=== PATIENT | male | born 1950 | race Caucasian/White ===

== ENCOUNTER 2021-03-18 10:38 | Outpatient (CLI) | payer MEDICARE, SELFPAY ==
[2021-03-18 10:53] LABS: Hematocrit 45.1 % (37.0-46.0); Hemoglobin 15.1 g/dL (12.4-15.3); Mean Corpuscular HGB Conc 33.5 g/dL (32.0-36.0); Mean Corpuscular Hemoglobin 35.1 pg (27.0-31.0); Mean Corpuscular Volume 104.9 fL (78.0-102.0); Mean Platelet Volume 8.7 fl (8.7-11.0); Platelet Count Result 170 K/mm3 (150-420); Red Cell Distribution Width 13.2 % (11.6-14.4); White Blood Count 8.4 K/mm3 (4.8-10.8)
[2021-03-18 11:36] LABS: Alanine Aminotransferase 23 U/L (16-63); Albumin Level 3.4 g/dL (3.4-5.0); Alkaline Phosphatase 63 U/L (46-116); Anion Gap 8 mmol/L (8-16); Aspartate Amino Transferase 19 U/L (15-37); Blood Urea Nitrogen 11 mg/dL (7-18); Calcium 8.8 mg/dL (8.5-10.1); Carbon Dioxide 31 mmol/L (21-32); Chloride 99 mmol/L (98-108); Cholesterol 136 mg/dL (0-200); Estimated Glomerular Filt Rate 60; Glucose 105 mg/dL (70-99); HDL Direct 61 mg/dL (40-60); LDL Cholesterol Calculated 56 mg/dL (<130); Osmolality Calculated 285 mOsm/kg (285-295); Potassium 4.4 mmol/L (3.5-5.1); Sodium 138 mmol/L (136-145); Total Protein 7.6 g/dL (6.4-8.2); Triglycerides 97 mg/dL (0-150)
== END 2021-03-18 10:39 | disposition home or self-care (01) ==
LOC: CHSLAB 10:40
PROVIDERS: PCP Family Medicine; Visit Provider Family Medicine
DX: I25.10 Atherosclerotic heart disease of native coronary artery without angina pectoris (principal)
CPT/HCPCS: 36415; 80053; 80061; 85027

== ENCOUNTER 2021-03-24 07:38 | Outpatient (CLI) | payer MEDICARE, SELFPAY ==
--- NOTE | ~2021-03-24 | US_ITS ---
US abdomen limited DATE: 03/24/2021 08:04 INDICATION: Jaundice TECHNIQUE: Real-time imaging of liver, pancreas, gallbladder areas COMPARISON: None FINDINGS: No hepatic space-occupying mass lesion is evident. Normal hepatopedal portal venous flow di rection. No pancreatic mass lesion is detected. No gallstones or gallbladder wall thickening. Negative sonogra phic Bearden's sign. The common bile duct measures 3 mm, normal. IMPRESSION: No significant abnormality Reviewed, dictated and finalized at Location [facility]. Reviewed, dictated and finalized at location B. IMPRESSION: No significant abnormality
== END 2021-03-24 07:39 | disposition home or self-care (01) ==
LOC: CHSIMG 07:41
PROVIDERS: PCP Family Medicine; Visit Provider Family Medicine
DX: R17 Unspecified jaundice (principal)
CPT/HCPCS: 76705

== ENCOUNTER 2021-03-30 07:36 | Outpatient (CLI) | payer MEDICARE, SELFPAY ==
--- NOTE | 2021-03-30 07:37 | EST_ITS ---
Patient Info Name: Dakota Hogan Age: 70 years : 1950 Gender: Male Ht: 68 in Wt: 192 lbs BSA: 2.07 m2 HR: 64 bpm BP: 151 / 77 mmHg Heart Rhythm: Sinus Rhythm Technical Quality: Excellent Exam Date: 03/30/2021 8:44 AM Exam Location: [facility] Patient Status: Outpatient Admit Date: 03/30/2021 Staff Ordering Physician: Trace Hollins DO Attending Provider: Trace Hollins DO Exercise Technologist: Crista Cross CRT Exercise Physician: Leti Pham CEP Exam Type: CA stress rodney w NM Study Info Indications CAD - A nuclear stress test was performed. History/Risk Factors Hypertension: Yes Dyslipidemia: Yes Coronary Artery Disease (CAD) Yes History/Risk Factors CABG. Summary 1. 1. Negative lexiscan stress test for ischemic ST changes by ECG criteria. 2. 2. Baseline hypertension. 3. 3. Nuclear scan to follow and will be reported separately. Please correlate with it. Protocol: LEXISCAN Stress ECG Details Stage: REST Duration (min): 1 min : 37 sec HR (bpm): 64 SBP (mmHg): 151 DBP (mmHg): 77 Stage: REST Duration (min): 11 min : 17 sec HR (bpm): 63 SBP (mmHg): 151 DBP (mmHg): 77 Stage: STAGE 1 Duration (min): 0 min : 16 sec HR (bpm): 62 SBP (mmHg): 151 DBP (mmHg): 77 Stage: RECOVERY Duration (min): 0 min : 43 sec HR (bpm): 75 SBP (mmHg): 151 DBP (mmHg): 77 Stage: RECOVERY Duration (min): 1 min : 43 sec HR (bpm): 81 SBP (mmHg): 151 DBP (mmHg): 77 Stage: RECOVERY Duration (min): 2 min : 43 sec HR (bpm): 71 SBP (mmHg): 178 DBP (mmHg): 74 Stage: RECOVERY Duration (min): 3 min : 43 sec HR (bpm): 74 SBP (mmHg): 169 DBP (mmHg): 74 Stage: RECOVERY Duration (min): 4 min : 43 sec HR (bpm): 70 SBP (mmHg): 161 DBP (mmHg): 76 Stage: RECOVERY Duration (min): 5 min : 43 sec HR (bpm): 72 SBP (mmHg): 148 DBP (mmHg): 77 Stage: RECOVERY Duration (min): 6 min : 4 sec HR (bpm): 69 SBP (mmHg): 148 DBP (mmHg): 77 Rest HR: 63 bpm Peak HR: 83 bpm Rest Sys BP: 151 mmHg Peak Sys BP: 178 mmHg Max Pred HR: 149 bpm % Max Pred HR: 56 % Target HR: 127 bpm Max RPP: 14,774 bpm*mmHg Termination Reason: Completed Protocol Cardiac Symptoms: Dyspnea Total Time: 0 min : 16 sec Rest Lynn BP: 77 mmHg Peak Lynn BP: 74 mmHg Total Dose: 0.4 mg Resting ECG Normal sinus rhythm, IRBBB. Stress ECG No abnormal ST/T wave changes with exercise. Arrhythmias PAC's. Report Signatures
--- NOTE | 2021-03-30 11:33 | P.NST_ITS ---
Nuclear Stress Test INDICATIONS Indications: Chest pain PROCEDURE Procedure Performed: Myocardial Perf Spect-Multi Procedure: Patient underwent a lexiscan stress test and immediately was injected with 33.9 mCi of cardiolyte. Multiple tomographic images were obtained. These are of good quality. There is evidence of a large size, severe anteroapical perfusion defect and a moderate size, moderate intensity basal-mid anterior perfusion defect during stress imaging. A separate resting images were obtained after patient was injected with 10.7 mCi of cardioloyte. Multiple tomographic images were obtained. These are of good quality. There is evidence of a large size, severe intensity anteroapical perfusion defect during rest imaging. CONCLUSION Conclusion: 1. Abnormal myocardial perfusion imaging demonstrating a moderate size, moderate severity basal-mid anterior perfusion defect during stress imaging consistent with reversible ischemia. In addition there is a fixed large size severe intensity anteroapical defects consistent with prior myocardial infarction. 2. Left ventriculogram demonstrates anteroapical hypokinesis with measured e jection fraction of 67%. 3. TID score 0.9 is normal.
== END 2021-03-30 07:37 | disposition home or self-care (01) ==
LOC: CHSCARD 07:37
PROVIDERS: PCP Family Medicine; Visit Provider Family Medicine
DX: I25.10 Atherosclerotic heart disease of native coronary artery without angina pectoris (principal)
CPT/HCPCS: 78452; 93017; A9502; J2785

== ENCOUNTER 2021-05-01 08:19 | Outpatient (CLI) | payer MEDICARE, SELFPAY ==
[2021-05-01 09:09] LABS: Anion Gap 4 mmol/L (8-16); Blood Urea Nitrogen 15 mg/dL (7-18); Calcium 8.5 mg/dL (8.5-10.1); Carbon Dioxide 33 mmol/L (21-32); Chloride 99 mmol/L (98-108); Estimated Glomerular Filt Rate 53; Glucose 105 mg/dL (70-99); Magnesium 2.6 mg/dL (1.8-2.4); Osmolality Calculated 282 mOsm/kg (285-295); Sodium 136 mmol/L (136-145)
== END 2021-05-01 08:20 | disposition home or self-care (01) ==
LOC: CHSLAB 08:21
PROVIDERS: PCP Family Medicine; Visit Provider Specialist
DX: I25.10 Atherosclerotic heart disease of native coronary artery without angina pectoris (principal); Z79.899 Other long term (current) drug therapy
CPT/HCPCS: 36415; 80048; 83735

== ENCOUNTER 2021-09-21 19:10 | Emergency (ER) | payer MEDICARE, SELFPAY ==
--- NOTE | ~2021-09-21 | CT_ITS ---
EXAMINATION: CT diagnostic chest w con DATE: 09/21/2021 23:10 INDICATION: Posttraumatic left pleural effusion on chest radiograph TECHNIQUE: Transaxial computed tomographic images of the chest were obtained after the administration of 75 cc of Omnipaque 350 intravenous contrast. The dose-length product (DLP) was 575.46 mGy-cm. Ite rative reconstruction was used. COMPARISON: None FINDINGS: Respiratory motion artifact slightly limits the examination. There is dependent atelectasis . A small left pleural effusion is present which appears to reflect simple fluid. There is no pneumot horax. Cardiomegaly is noted. There is myocardial thinning of the left ventricular apex, consistent w ith prior myocardial infarction. There are changes of coronary artery bypass grafting. There is mild right hilar lymphadenopathy, likely reactive. Calcified subcarinal lymph nodes are consistent with ol d granulomatous disease. There are bridging osteophytes at multiple levels in the spine, consistent w ith diffuse idiopathic skeletal hyperostosis (DISH). IMPRESSION: 1. Small left pleural effusion which appears to reflect simple fluid. Mild atelectasis. Reviewed, dictated and finalized at location A. IMPRESSION: 1. Small left pleural effusion which appears to reflect simple fluid. Mild atel ectasis.
--- NOTE | ~2021-09-21 | XR_ITS ---
EXAM: XR hand RT min 3V HISTORY: right hand pain @ 2nd MCP, after a fall COMPARISON: None available FINDINGS: No fracture or dislocation. Ovoid metallic foreign body in the soft tissues posterior and medial to the second proximal phalange. Degenerative osteophytic changes in the finger joints, most s evere at the second and third MCP joints. SLAC wrist. Extensive vascular calcifications. IMPRESSION: No acute osseous finding in the right hand. Acute versus chronic foreign body in the soft tissues pos terior and medial to the second proximal phalange. Reviewed, dictated and finalized at location K. IMPRESSION: No acute osseous finding in the right hand. Acute versus chronic foreign body i n the soft tissues posterior and medial to the second proximal phalange.
--- NOTE | ~2021-09-21 | CT_ITS ---
EXAMINATION: CT brain wo con DATE: 09/21/2021 20:56 INDICATION: Fall, head injury, altered mental status, intoxicated. TECHNIQUE: Computed tomography (CT) of the head was performed without intravenous contrast. The mA wa s adjusted according to patient size. The dose-length product was 681.00 mGy-cm. COMPARISON: 05/10/2009. FINDINGS: No acute intracranial hemorrhage or extra-axial fluid collection. No hydrocephalus, mass, or herniation. No acute ischemic infarct. Unremarkable dural venous sinus attenuation. No acute osseous abnormality. Mildly coastal thickening in the ethmoid air cells and maxillary sinuses, otherwise the aerated space s are clear. Severe atrophy and moderate chronic white matter change. Areas of encephalomalacia/gliosis in the rig ht temporal lobe, right basal ganglia, and right occipital lobe. IMPRESSION: No acute intracranial process. Reviewed, dictated and finalized at location K.
--- NOTE | ~2021-09-21 | CT_ITS ---
EXAMINATION: CT pelvis wo con DATE: 09/21/2021 20:56 INDICATION: Fall while intoxicated, pelvic pain. TECHNIQUE: Computed tomography (CT) of the pelvis was performed without intravenous contrast. Automat ed exposure control and iterative reconstruction technique were employed. The dose-length product was 681.00 mGy-cm. COMPARISON: None FINDINGS: Limitations: None Bones: The included osseous structures are within normal limits. There are no erosive or destructive bony lesions. Soft Tissues:Small bilateral inguinal hernias. Marked bladder distention. Mild prostatomegaly with ca lcifications. Seminal vesicle calcification. Atherosclerotic vascular calcifications. Left posterior lateral hip contusion. Fluid: No significant fluid within the joint capsule or surrounding bursal spaces. IMPRESSION: No acute osseous finding in the pelvis. Marked bladder distention. Reviewed, dictated and finalized at location K.
--- NOTE | ~2021-09-21 | XR_ITS ---
EXAMINATION: XR chest 1V portable Exam Date/Time: 09/21/2021 20:30 CDT CLINICAL HISTORY: fall. weakness. intoxicated Comparison: None available. RESULT: Lines, tubes, and devices: Intact median sternotomy wires.. Lungs and pleura: Hazy opacity in the left lower lung. Left angle blunting. Left lower pleural locul ation. Cardiomediastinal silhouette: Unremarkable cardiomediastinal silhouette. Other: No acute osseous or upper abdominal finding. IMPRESSION: Small left pleural effusion, with adjacent atelectasis, and left lower pleural loculation which may r epresent a small hemothorax and extrapleural hematoma in the setting of trauma. Consider CT of the ch est with contrast for further evaluation. Reviewed, dictated and finalized at location K. IMPRESSION: Small left pleural effusion, with adjacent atelectasis, and left lower pleural loculation which may represent a small hemothorax and extrapleural hematoma in the setting of trauma. Consider CT of the chest with contrast for further evalu ation.
--- NOTE | ~2021-09-21 | CT_ITS ---
EXAMINATION: CT facial & cervical spine wo DATE: 09/21/2021 20:55 INDICATION: Fall, right neck hematoma and superficial laceration. TECHNIQUE: Computed tomography (CT) of the maxillofacial region and cervical spine was performed with out intravenous contrast. Automated exposure control and iterative reconstruction technique were empl oyed. The dose-length product was 431.81 mGy-cm. COMPARISON: None FINDINGS: CERVICAL: Counting reference: Craniocervical junction. There are 7 cervical type vertebral bodies. Anatomic Variants: None. Alignment: Alignment is anatomic. Craniocervical junction: Mild degenerative change, otherwise intact. Osseous structures/fracture: No evidence of a lytic or blastic process in the visualized spine. N o evidence of acute or chronic fracture. Cervical soft tissues: The paraspinal soft tissues planes are maintained. Right neck contusion. Degenerative changes: Multilevel severe degenerative disc disease. Multilevel facet arthropathy. Mult ilevel bilateral severe neural foraminal narrowing. No severe central canal narrowing. FACE: Soft Tissues: Subcutaneous contusion along the right lower face/jaw. Facial bones: No evidence of an acute fracture in the visualized facial bones. Orbits: No evidence of an acute fracture. The globes are intact. The soft tissue planes of the orb its are maintained. Paranasal Sinuses: Mild mucosal thickening in the ethmoid air cells and bilateral maxillary sinuses. Foreign Bodies: No evidence of radiopaque foreign bodies. Other: No evidence of a remote fracture. No lytic or blastic process seen in the facial bones. Cookie re dental caries and periodontal disease. IMPRESSION: No acute fracture or traumatic malalignment in the cervical spine. No acute facial bone fracture. Reviewed, dictated and finalized at location K. IMPRESSION: No acute fracture or traumatic malalignment in the cervical spine. No acute fac ial bone fracture.
[2021-09-21 19:32] VITALS: BP 118/73; PULSE 53; RESP 16; TEMP 36.4; O2SAT 100
--- NOTE | 2021-09-21 19:48 | ECG_ITS ---
Measurements Intervals Wheeler Rate: 55 P: -63 TN: 294 QRS: 76 QRSD: 101 T: 104 QT: 458 QTc: 442 Interpretive Statements SINUS BRADYCARDIA WITH FIRST DEGREE AV BLOCK MODERATE ST DEPRESSION [0.05+ mV ST DEPRESSION] ABNORMAL ECG NO PREVIOUS ECG AVAILABLE FOR COMPARISON Electronically Signed On 09-22-2021 17:50:53 CDT by Hugh Ravi M.D.
[2021-09-21 20:33] LABS: Basophils Absolute Auto 0.05 K/mm3 (0.00-0.10); Basophils Percent Auto 0.9 % (0.0-1.0); Eosinophils Absolute Auto 0.13 K/mm3 (0.02-0.50); Eosinophils Percent Auto 2.3 % (1.0-6.0); Hematocrit 43.2 % (37.0-46.0); Hemoglobin 14.6 g/dL (12.4-15.3); Immature Granulocyte Absolute 0.01 K/mm3 (0.00-0.00); Immature Granulocyte Percent A 0.2 % (0.0-0.0); Lymphocytes Absolute Auto 2.06 K/mm3 (1.10-4.50); Lymphocytes Percent Auto 36.3 % (18.0-42.0); Mean Corpuscular HGB Conc 33.8 g/dL (32.0-36.0); Mean Corpuscular Hemoglobin 36.7 pg (27.0-31.0); Mean Corpuscular Volume 108.5 fL (78.0-102.0); Monocytes Absolute Auto 0.41 K/mm3 (0.10-0.90); Monocytes Percent Auto 7.2 % (2.0-11.0); Neutrophils Percent Auto 53.1 % (50.0-70.0); Platelet Count Result 174 K/mm3 (150-420); Red Blood Count 3.98 M/mm3 (4.70-6.10); Red Cell Distribution Width 12.9 % (11.6-14.4); White Blood Count 5.7 K/mm3 (4.8-10.8)
[2021-09-21] MEDS: TETANUS,DIPHTHERIA,AC PERTUSSIS ADULT 0.5 ML (ADACEL) IM (20:52)
[2021-09-21] MEDS: THIAMINE HCL INJ 100 MG, FOLIC ACID 1 MG, MULTIVITAMINS-12 INJ 10 ML, MAGNESIUM SULFATE... 1000 MG IV CONT (20:53)
[2021-09-21 20:54] LABS: Alanine Aminotransferase 31 U/L (16-63); Albumin Level 3.5 g/dL (3.4-5.0); Alkaline Phosphatase 67 U/L (46-116); Anion Gap 8 mmol/L (8-16); Aspartate Amino Transferase 38 U/L (15-37); Bilirubin,Total 1.2 mg/dL (0.00-1.00); Blood Urea Nitrogen 6 mg/dL (7-18); Calcium 8.4 mg/dL (8.5-10.1); Carbon Dioxide 28 mmol/L (21-32); Chloride 97 mmol/L (98-108); Estimated CRCL calculation 51 ml/min; Estimated Glomerular Filt Rate > 60; Glucose 111 mg/dL (70-99); Osmolality Calculated 274 mOsm/kg (285-295); Potassium 3.9 mmol/L (3.5-5.1); Sodium 133 mmol/L (136-145); Total Protein 8.3 g/dL (6.4-8.2); Troponin I 16.4 ng/L (0.00-60.4)
[2021-09-21 20:56] LABS: Ethanol 326 mg/dL (0-6)
--- NOTE | 2021-09-21 22:15 | PC.NURSE ---
pt's friend - Caitlin [phone]
--- NOTE | 2021-09-21 22:20 | PC.NURSE ---
pt's friend Charley [phone], contacted to transport pt home.
--- NOTE | 2021-09-22 00:28 | PC.NURSE ---
pt reports, 'I already pee
--- NOTE | 2021-09-22 00:39 | PC.NURSE ---
contacted [facility] system for trauma surgery consult for patient.
--- NOTE | 2021-09-22 00:55 | PC.NURSE ---
c-collar placed on pt per MD Klein
--- NOTE | 2021-09-22 01:27 | PC.NURSE ---
pt to be transferred to [facility], er to er. [facility] contacted for pt transfer.
[2021-09-22] MEDS: SODIUM CHLORIDE 0.9% IV 1,000 ML 150 ML IV CONT (01:30)
--- NOTE | 2021-09-22 01:31 | ED.FALL ---
HPI - Fall General Chief Complaint: Fall Stated Complaint: AMB Time Seen by Provider: 09/21/21 19:12 Source: patient, EMS, RN notes reviewed and old records reviewed Mode of arrival: EMS Limitations: no limitations History of Present Illness MD complaint: fall Onset (ago): hour(s) (2, also multiple falls over the past several weeks. ) Fall from: standing Place fall occurred: home Loss of consciousness: none Prolonged down time: unclear Symptoms prior to fall: lightheadedness and dizziness Context: tripped/slipped and alcohol use Location of injury: neck and chest Severity: mild Severity scale (1-10): 4 Quality: dull and aching Associated symptoms (after fall): neck pain Related Data Home Medications Medication Instructions Recorded Confirmed aspirin 81 mg tablet,delayed 81 mg PO DAILY 03/18/21 09/21/21 release atorvastatin 40 mg tablet 40 mg PO DAILY 03/18/21 09/21/21 metoprolol tartrate 25 mg tablet 25 mg PO BID tablet 03/18/21 09/21/21 clopidogrel 75 mg PO DAILY 09/21/21 09/21/21 Allergies Allergy/AdvReac Type Severity Reaction Status Date / Time No Known Allergies Allergy Verified 09/21/21 19:31 Review of Systems Review of Systems: All systems reviewed & are unremarkable except as noted in HPI and below PMFSH Past Medical History Medical History (Updated 09/22/21 @ 02:12 by Parish Klein MD) CAD (coronary artery disease) Hypercholesterolemia Hypertension Multiple falls Surgical History Surgical History Hx of CABG Family History Family History Mother Family history of type 2 diabetes mellitus Social History Social History Smoking status: Never smoker Alcohol intake: current Alcohol use details: Drinks gallon of wine every 5 days. Exam Const: General: no acute distress and alert Nutritional Appearance: well nourished Limitations: no limitations HENMT: Head: hematoma (right lower jaw to neck) 3 cm and laceration (superficial 0.5 cm skin flaps to right lower jaw hematoma.`````````````````) General nose exam: Normal external nose present and Normal nares present Face and sinus: sinuses nontender Mouth: Yes moist mucous membranes Eyes: Conjunctivae: conjunctivae normal Pupils: Equal, round and reactive pupils present EOM: EOMs intact bilaterally Neck: Neck: normal visual inspection Other: hematoma right lower jaw to neck Chest: Chest palpation & inspection: normal inspection of the chest Resp: Effort & Inspection: normal respiratory effort Auscultation: clear to auscultation bilaterally Cardio: Rate: regular rate Rhythm: regular rhythm GI: GI Palp: Yes Soft to palpation and No Tenderness to palpation present (GI) Auscultation: normal bowel sounds : General: Yes no CVA tenderness Male General Exam: Yes normal external exam Testes: Testes normal Back/Spine/Pelvis: Back: no CVA tenderness Skin: General skin exam: normal color Rashes: no rashes Neuro: General: moves all extremities, no meningeal signs, no focal motor deficits and CN's II-XI intact bilaterally Cranial nerves: Yes Nystagmus not present Speech: normal speech Extrem: General: no pedal edema Other: minimal dorsal right hand 2nd and 3rd discolored swelling. no laceration or FB seen. Psych: Appearance: grossly normal Mental Status: mental status grossly normal Attitude: cooperative Thought content: Yes Normal thought content present Course Course Emergency Course: Pt was stable in the ED. no acute SOB or chest pain. Reevaluation(s) Reevaluation #1: VSS Date: 09/21/21 Time: 20:06 Vital Signs Vital signs: Vital Signs Temperature 36.4 C 09/21/21 19:32 Pulse Rate 53 L 09/21/21 19:32 Respiratory Rate 16 09/21/21 19:32 Blood Pressure 118/73 09/21/21 19:32 Pulse Oximetry 100 09/21/21 19:32 Temperature
[2021-09-22 01:54] LABS: Partial Thromboplastin Time 26.8 SEC (23.90-30.70); Prothrombin Time 10.5 Seconds (9.50-12.10)
[2021-09-22 02:03] LABS: Ethanol 224 mg/dL (0-6)
--- NOTE | 2021-09-22 02:03 | PC.NURSE ---
pt transported by [facility] with NS 150ml/hr
--- NOTE | 2021-09-22 02:05 | PC.NURSE ---
critical etoh 220 md alexander informed and EMMY [place] at [facility] notified with current value.
[2021-09-22 02:06] VITALS: BP 143/93; PULSE 67; RESP 20; TEMP 35.9; O2SAT 97
== END 2021-09-22 02:09 | disposition short-term general hospital (02) ==
PROVIDERS: Emergency Provider Emergency Medicine; PCP Family Medicine
DX: J94.2 Hemothorax (principal); F10.10 Alcohol abuse, uncomplicated; W19.XXXA Unspecified fall, initial encounter; I25.10 Atherosclerotic heart disease of native coronary artery without angina pectoris; E78.00 Pure hypercholesterolemia, unspecified; I10 Essential (primary) hypertension; Z79.899 Other long term (current) drug therapy; Z95.1 Presence of aortocoronary bypass graft
CPT/HCPCS: 36415; 70450; 70486; 71045; 71260; 72125; 72192; 73130; 80053; 80307; 84484; 85025; 85610; 85730; 90471; 90715; 93005; 96361; 96365; 99285; J3411; J3475; J7030; L0150; Q9967

== ENCOUNTER 2021-10-05 22:18 | Observation (INO) | payer MEDICARE, SELFPAY ==
--- NOTE | ~2021-10-05 | XR_ITS ---
EXAMINATION: XR hand RT 2V DATE: 10/06/2021 08:41 INDICATION: Pain at the right second metacarpophalangeal joint post fall TECHNIQUE: Posteroanterior and lateral views of the right hand were obtained. COMPARISON: 09/21/2021 FINDINGS: 2 mm ulnar minus variance. No fracture. There is disruption of the carpal arcs with prominent widenin g of the scapholunate interval and proximal migration of the capitate consistent with disruption of t he scapholunate ligament. There is severe osteoarthritis at the radioscaphoid and lunohamate articula tions consistent with secondary scapholunate advanced collapse (SLAC) wrist. Additional moderate oste oarthritis at the second metacarpophalangeal joint and fifth proximal interphalangeal joints. Mild os teoarthritis at the distal radioulnar, triscaphe, first carpometacarpal and remaining metacarpophalan geal and interphalangeal joints. Extensive vascular calcifications including at the distal radial and ulnar arteries. Soft tissue swelling about the heads of the second and third metacarpals. Unchanged small metallic foreign body in the soft tissues along the ulnar side of the proximal diaphysis of the second proximal phalanx. IMPRESSION: 1. No acute osseous abnormality. 2. 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 3. Additional mild to moderate polyarticular osteoarthritis at the right hand and wrist. 4. Chronic small metallic foreign body along the second proximal phalanx. Reviewed, dictated and finalized at location B. IMPRESSION: 1. No acute osseous abnormality. 2. 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 3. Additional mild to moderate polyarticular osteoarthritis at the right hand a nd wrist. 4. Chronic small metallic foreign body along the second proximal phalanx.
--- NOTE | ~2021-10-05 | CT_ITS ---
EXAMINATION: CT brain wo con DATE: 10/05/2021 23:11 INDICATION: Head injury. TECHNIQUE: Computed tomography (CT) of the head was performed without intravenous contrast. The mA wa s adjusted according to patient size. Iterative reconstruction technique was employed. The dose-lengt h product was 681.00 mGy-cm. COMPARISON: Head CT 09/21/2021 FINDINGS: There is an old infarct involving the right basal ganglia and anterior limb right internal capsule. There are old infarcts in right frontoparietal region. There is an old infarct in right occi pital lobe. There is an old infarct in anterior right temporal lobe. There are scattered areas of low attenuation in the cerebral white matter. There is no intracranial hemorrhage, acute infarction, or abnormal intracranial mass lesion. There is ex vacuo dilatation of right lateral ventricle. The orbit s are normal. There is mild mucosal thickening in the paranasal sinuses. The mastoid air cells are no rmal. There is a frontal scalp laceration. IMPRESSION: 1. 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 2. Mild nonspecific cerebral white matter disease, which likely represents chronic small vessel ische pardeep disease. Reviewed, dictated and finalized at location A. IMPRESSION: 1. 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 2. 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
[2021-10-05 22:25] VITALS: BP 120/87; PULSE 56; RESP 18; TEMP 36.6; O2SAT 97
--- NOTE | 2021-10-05 22:52 | ED.FALL ---
HPI - Fall General Chief Complaint: Fall Stated Complaint: AMB Source: patient and EMS History of Present Illness HPI Narrative: this is a 70-year-old gentleman with history of coronary artery disease on Plavix that had a fall earlier this evening the patient is a chronic alcoholic and has been drinking today has a laceration to the anterior mid scalp area no other injuries has good range of motion in his arms legs no shortness of breath no abdominal pain no chest pain no fever chills. complaint: fall Onset (ago): hour(s) Fall from: standing Place fall occurred: home Loss of consciousness: none Prolonged down time: no Related Data Home Medications Medication Instructions Recorded Confirmed aspirin 81 mg tablet,delayed 81 mg PO DAILY 03/18/21 10/05/21 release atorvastatin 40 mg tablet 40 mg PO DAILY 03/18/21 10/05/21 metoprolol tartrate 25 mg tablet 25 mg PO BID tablet 03/18/21 10/05/21 clopidogrel 75 mg PO DAILY 09/21/21 10/05/21 Allergies Allergy/AdvReac Type Severity Reaction Status Date / Time No Known Allergies Allergy Verified 10/05/21 23:24 Review of Systems Review of Systems: All systems reviewed & are unremarkable except as noted in HPI and below PMFSH Past Medical History Medical History CAD (coronary artery disease) Hypercholesterolemia Hypertension Multiple falls Surgical History Surgical History Hx of CABG Family History Family History Mother Family history of type 2 diabetes mellitus Social History Social History Smoking status: Never smoker Alcohol intake: current Alcohol use details: Drinks gallon of wine every 5 days. Exam Const: General: no acute distress and alert Orientation/consciousness: patient oriented x3 HENMT: Head: normal to inspection Eyes: Conjunctivae: conjunctivae normal Pupils: Equal, round and reactive pupils present Neck: Neck: normal visual inspection, no lymphadenopathy and no meningeal signs Chest: Chest palpation & inspection: normal inspection of the chest Resp: Effort & Inspection: normal respiratory effort Cardio: Rate: regular rate Rhythm: regular rhythm GI: Auscultation: normal bowel sounds Urinary Catheter: Urinary Catheter: patent and draining Back/Spine/Pelvis: Back: no CVA tenderness Skin: General skin exam: normal color Rashes: no rashes Neuro: General: patient oriented x3 Extrem: General: normal to inspection and no pedal edema Psych: Mental Status: mental status grossly normal Affect: normal affect Attitude: cooperative Course Course Emergency Course: [place] placed in laceration anterior scalp and CT scan performed. Critical Care Time Critical Care Time Critical Care Time: No Discharge Plan Discharge Clinical Impression: ETOH abuse, Acute hyponatremia Contusion Qualifiers: Encounter type: initial encounter Contusion area: head Contusion of head detail: scalp Qualified Code(s): S00.03XA - Contusion of scalp, initial encounter Patient Disposition: Acute Care Hospital Condition: Guarded Prognosis Additional Instructions: Disposition to acute hospital Condition guarded Impression alcohol toxicity/contusion / hyponatremia Prescriptions: No Action clopidogrel 75 mg tablet 75 mg PO DAILY RF: 0 metoprolol tartrate 25 mg tablet 25 mg PO BID RF: 0 atorvastatin 40 mg tablet 40 mg PO DAILY RF: 0 aspirin 81 mg tablet,delayed release (DR/EC) 81 mg PO DAILY RF: 0 amlodipine 5 mg tablet See Rx Instructions .ROUTE .COMPLEX Qty: 90 RF: 0 Follow-up/Referrals: UNKNOWN,DOCTOR [Primary Care Provider] - Time of Disposition: 00:14
[2021-10-05] MEDS: TETANUS,DIPHTHERIA,AC PERTUSSIS ADULT 0.5 ML (ADACEL) IM (23:17)
[2021-10-05 23:20] VITALS: BP 93/79; PULSE 55; RESP 18; O2SAT 98
[2021-10-05 23:24] LABS: Basophils Absolute Auto 0.04 K/mm3 (0.00-0.10); Basophils Percent Auto 0.8 % (0.0-1.0); Eosinophils Absolute Auto 0.21 K/mm3 (0.02-0.50); Hematocrit 39.3 % (37.0-46.0); Immature Granulocyte Absolute 0.01 K/mm3 (0.00-0.00); Immature Granulocyte Percent A 0.2 % (0.0-0.0); Lymphocytes Percent Auto 35.8 % (18.0-42.0); Mean Corpuscular HGB Conc 33.1 g/dL (32.0-36.0); Mean Corpuscular Hemoglobin 36.3 pg (27.0-31.0); Mean Corpuscular Volume 109.8 fL (78.0-102.0); Mean Platelet Volume 9.1 fl (8.7-11.0); Monocytes Absolute Auto 0.52 K/mm3 (0.10-0.90); Monocytes Percent Auto 9.8 % (2.0-11.0); Neutrophils Absolute Auto 2.6 K/mm3 (1.7-7.2); Neutrophils Percent Auto 49.4 % (50.0-70.0); Platelet Count Result 204 K/mm3 (150-420); Red Blood Count 3.58 M/mm3 (4.70-6.10); Red Cell Distribution Width 12.8 % (11.6-14.4); White Blood Count 5.3 K/mm3 (4.8-10.8)
[2021-10-05 23:30] VITALS: BP 117/57; PULSE 66; RESP 16; O2SAT 95
[2021-10-05 23:39] LABS: Partial Thromboplastin Time 25.2 SEC (23.90-30.70); Prothrombin Time 10.9 Seconds (9.50-12.10)
[2021-10-05 23:41] LABS: Alanine Aminotransferase 30 U/L (16-63); Albumin Level 3.3 g/dL (3.4-5.0); Alkaline Phosphatase 52 U/L (46-116); Anion Gap 6 mmol/L (8-16); Aspartate Amino Transferase 38 U/L (15-37); Blood Urea Nitrogen 7 mg/dL (7-18); Calcium 8.4 mg/dL (8.5-10.1); Carbon Dioxide 29 mmol/L (21-32); Chloride 99 mmol/L (98-108); Estimated Glomerular Filt Rate > 60; Glucose 100 mg/dL (70-99); Osmolality Calculated 276 mOsm/kg (285-295); Potassium 3.9 mmol/L (3.5-5.1); Sodium 134 mmol/L (136-145); Total Protein 7.6 g/dL (6.4-8.2)
[2021-10-05 23:46] LABS: Ethanol 250 mg/dL (0-6)
--- NOTE | 2021-10-06 00:15 | PC.NURSE ---
After inspecting wound, ERP decided pt did not need marlene and wanted pt's wound wrapped. RN applied an ABD pad to the wound and wrapped with Kerlix. Bleeding was controlled. Pt's color on his head is normal.
[2021-10-06] MEDS: SODIUM CHLORIDE 0.9% IV 1,000 ML 999 ML IV CONT (00:34)
[2021-10-06 00:55] VITALS: BP 91/72; PULSE 66; RESP 18; O2SAT 98
--- NOTE | 2021-10-06 00:57 | PC.NURSE ---
Pt was ready to be transferred to the floor after urinating in a urinal in the room. Pt voided 650mL of straw yellow urine. Pt was able to stand by himself, but was unsteady. Pt got back onto the stretcher with 0.9% NSS IV bolus with 300mLs remaining of the 1000mL. Pt was transferred to room 206 and left in care of Nelida BOOTH.
[2021-10-06 01:15] VITALS: BP 125/74; PULSE 64; RESP 20; TEMP 36.2; O2SAT 100
--- NOTE | 2021-10-06 01:31 | ADMGEN ---
This patient, Dakota Hogan, was admitted to 2nd Floor Room 206-1. Patient oriented to hospital policies and general routines including ID bracelet, bed and alarms, visiting hours, pain management, procedures, bathroom and other care routines, personal items, smoking policy, room service/diet, and visiting hours. Information on how to activate the Rapid Response Team has been discussed. Patient are encouraged to report perceived risks to care and to ask questions if they do not understand what they are told or what they should do.
[2021-10-06] MEDS: chlordiazePOXIDE (*CRX) 10 MG CAPSULE PO (01:33)
[2021-10-06] MEDS: SODIUM CHLORIDE 0.9% IV 1,000 ML 100 ML IV CONT (01:33)
--- NOTE | 2021-10-06 01:35 | PC.NURSE ---
Patient's dressing to forehead fell off when he was transferring from ER stretcher to bed. Laceration noted to forehead 3.7cm x 0.5cm. No current bleeding. Non-adherent pad applied to area. Patient very talkative and openly talking about how much alcohol he drinks. Dried blood from forehead on his face, hands, chest cleaned. Call light in reach.
[2021-10-06 01:42] VITALS: BMI 25.9
[2021-10-06 04:00] VITALS: BP 151/80; PULSE 70; RESP 18; TEMP 36.3; O2SAT 99
[2021-10-06 07:21] LABS: Basophils Absolute Auto 0.04 K/mm3 (0.00-0.10); Basophils Percent Auto 0.7 % (0.0-1.0); Eosinophils Absolute Auto 0.23 K/mm3 (0.02-0.50); Eosinophils Percent Auto 4.3 % (1.0-6.0); Hemoglobin 12.8 g/dL (12.4-15.3); Immature Granulocyte Absolute 0.01 K/mm3 (0.00-0.00); Immature Granulocyte Percent A 0.2 % (0.0-0.0); Lymphocytes Absolute Auto 1.27 K/mm3 (1.10-4.50); Lymphocytes Percent Auto 23.7 % (18.0-42.0); Mean Corpuscular HGB Conc 33.7 g/dL (32.0-36.0); Mean Corpuscular Hemoglobin 37.2 pg (27.0-31.0); Mean Corpuscular Volume 110.5 fL (78.0-102.0); Mean Platelet Volume 9.1 fl (8.7-11.0); Monocytes Absolute Auto 0.48 K/mm3 (0.10-0.90); Neutrophils Absolute Auto 3.3 K/mm3 (1.7-7.2); Neutrophils Percent Auto 62.1 % (50.0-70.0); Platelet Count Result 197 K/mm3 (150-420); Red Blood Count 3.44 M/mm3 (4.70-6.10); Red Cell Distribution Width 12.9 % (11.6-14.4); White Blood Count 5.4 K/mm3 (4.8-10.8)
[2021-10-06 07:26] VITALS: BP 110/56; PULSE 63; RESP 17; TEMP 36.3; O2SAT 97
[2021-10-06 07:36] LABS: Alanine Aminotransferase 34 U/L (16-63); Albumin Level 2.9 g/dL (3.4-5.0); Alkaline Phosphatase 48 U/L (46-116); Anion Gap 6 mmol/L (8-16); Aspartate Amino Transferase 44 U/L (15-37); Bilirubin,Total 0.8 mg/dL (0.00-1.00); Blood Urea Nitrogen 5 mg/dL (7-18); Carbon Dioxide 27 mmol/L (21-32); Chloride 107 mmol/L (98-108); Estimated CRCL calculation 54 ml/min; Estimated Glomerular Filt Rate > 60; Ethanol 139 mg/dL (0-6); Glucose 78 mg/dL (70-99); Osmolality Calculated 286 mOsm/kg (285-295); Potassium 4.4 mmol/L (3.5-5.1); Sodium 140 mmol/L (136-145)
[2021-10-06] MEDS: amLODIPine BESYLATE 5 MG TABLET BY MOUTH (08:02)
[2021-10-06] MEDS: ASPIRIN 81 MG ENTERIC TABLET PO (08:10)
[2021-10-06] MEDS: ATORVASTATIN 40 MG TABLET PO (08:10)
[2021-10-06] MEDS: CLOPIDOGREL BISULFATE 75 MG TABLET PO (08:10)
[2021-10-06 08:14] VITALS: PULSE 63
[2021-10-06] MEDS: METOPROLOL TARTRATE 25 MG TABLET PO (08:14)
--- NOTE | 2021-10-06 08:20 | PM.SD2 ---
Same Day Admit/Disch: HPI History of Present Illness Chief complaint: ALCOHOL TOXICITY HYPONATREMIA CONTUSION Narrative: Dakota Hogan is a 70 year old male that presented to our emergency department status post fall after intoxication. Patient has a history of CAD, hypercholesteremia, hypertension and multiple falls due to alcohol abuse. patient previously admitted on 09/22/2021 status post fall after intoxication patient transferred to outside hospital at that time. Patient notes that yesterday he drank wine in several beers in went to remove his dog from outside and bring him in the house when his dog became happy to see him and jumped on him which caused him to fall and caused a laceration to his mid forehead and abrasions to the left side of his his head. Patient also complains of right hand swelling notes that he has arthritis to that hand and it often swells up will complete x-ray to rule out a fracture dislocation. Patient informs us that he will continue to drink and does not want any assistance with cessation. Did talk to patient's primary care physician and updated him on patient's situation. WBCs 5.4, hemoglobin 12.8, hematocrit 38.0, platelets 197, sodium 140, potassium 4.4, creatinine 1.07, BUN 5, glucose 78, total bili 1.0, AST 38, ALT 30, alcohol level 250, CT of the head no new finding. Patient is anxious to discharge he will discharge today patient has been educated on cessation of alcohol abuse. The patient denies SOB, CP, palpitation, extremity numbness, headaches, lightheadedness, dizziness, constipation, diarrhea, chills, or fever. PMFSH Past Medical History Medical History CAD (coronary artery disease) Hypercholesterolemia Hypertension Multiple falls Surgical History Surgical History Hx of CABG Family History Family History Mother Family history of type 2 diabetes mellitus Social History Social History Smoking status: Never smoker Second hand tobacco smoke exposure: Yes Alcohol intake: current Drinks per week: 100 Alcohol use details: Drinks gallon of wine every 5 days. Substance use: never Substance use type: does not use Spiritual care concerns: No Same Day Admit/Disch: Med Pre-admit Medications Home Medications Medication Instructions Recorded Confirmed Type aspirin 81 mg tablet,delayed 81 mg PO DAILY 03/18/21 10/05/21 History release atorvastatin 40 mg tablet 40 mg PO DAILY 03/18/21 10/05/21 History metoprolol tartrate 25 mg tablet 25 mg PO BID tablet 03/18/21 10/05/21 History amlodipine 5 mg tablet See Rx Instructions .ROUTE 06/11/21 10/05/21 Rx .COMPLEX #90 tablet clopidogrel 75 mg PO DAILY 09/21/21 10/05/21 History Exam Narrative: GENERAL: This is a well-nourished, well-developed patient, in no apparent distress. HEAD: normocephalic, atraumatic. EYES: PERRL. Sclera clear/white. Vision is grossly intact. EARS: External ears normal, auditory canals clear and without drainage, TMs normal without perforation. Hearing grossly intact. NOSE: External nose normal with no obvious nasal discharge, nares without redness, no rhinorrhea. THROAT: Mucous membranes moist, posterior pharynx clear. NECK: Neck supple, non-tender without lymphadenopathy, masses or thyromegaly. CARDIOVASCULAR: Regular rate and rhythm without murmurs, gallops, or rubs. RESPIRATORY: Clear to auscultation. Breath sounds equal bilaterally. No wheezes, rales, or rhonchi. GASTROINTESTINAL: Abdomen soft, non-tender, nondistended. Bowel sounds are active. No hepato-splenomegaly, or palpable masses. No guarding. SKIN: Laceration to the mid forehead with abrasion to the left side of head NEURO: awake, alert, and oriented to person, place and time. There were no obvious focal neurologic abnorma
--- NOTE | 2021-10-06 10:05 | PC.NURSE ---
Patient discharged from unit to home. Patient escorted off unit by ghost writer in w/c. Discharge instructions given to patient and he voiced understanding. Personal items returned to patient upon discharge. Patient left hospital in private vehicle accompanied by his significant other.
--- NOTE | 2021-10-07 11:56 | PC.NURSE ---
Pt states he received and understood his discharge instructions. Has no other comments.
== END 2021-10-06 10:05 | disposition home or self-care (01) ==
LOC: CHSED 10-06 00:14 → CHS2ND 10-06 06:38
PROVIDERS: Admitting Provider Internal Medicine; Emergency Provider Emergency Medicine; PCP Family Medicine; Visit Provider Internal Medicine
DX: E87.1 Hypo-osmolality and hyponatremia (principal); F10.10 Alcohol abuse, uncomplicated; S01.01XA Laceration without foreign body of scalp, initial encounter; I25.10 Atherosclerotic heart disease of native coronary artery without angina pectoris; I10 Essential (primary) hypertension; E78.00 Pure hypercholesterolemia, unspecified; M79.89 Other specified soft tissue disorders; R29.6 Repeated falls; W19.XXXA Unspecified fall, initial encounter; Z79.01 Long term (current) use of anticoagulants; Z95.1 Presence of aortocoronary bypass graft; Z79.899 Other long term (current) drug therapy
CPT/HCPCS: 36415; 70450; 73120; 80053; 80307; 85025; 85610; 85730; 90471; 90715; 96360; 96361; 99285; A9270; G0378; J7030

== ENCOUNTER 2021-10-13 09:43 | Outpatient (CLI) | payer MEDICARE, SELFPAY ==
[2021-10-13 10:06] LABS: Hematocrit 39.5 % (37.0-46.0); Hemoglobin 13.3 g/dL (12.4-15.3); Mean Corpuscular HGB Conc 33.7 g/dL (32.0-36.0); Mean Corpuscular Hemoglobin 37.4 pg (27.0-31.0); Mean Platelet Volume 9.2 fl (8.7-11.0); Platelet Count Result 198 K/mm3 (150-420); Red Blood Count 3.56 M/mm3 (4.70-6.10); Red Cell Distribution Width 12.6 % (11.6-14.4); White Blood Count 8.8 K/mm3 (4.8-10.8)
[2021-10-13 10:42] LABS: Alanine Aminotransferase 27 U/L (16-63); Albumin Level 3.4 g/dL (3.4-5.0); Alkaline Phosphatase 59 U/L (46-116); Anion Gap 4 mmol/L (8-16); Aspartate Amino Transferase 32 U/L (15-37); Bilirubin,Total 1.9 mg/dL (0.00-1.00); Blood Urea Nitrogen 8 mg/dL (7-18); Calcium 8.7 mg/dL (8.5-10.1); Carbon Dioxide 29 mmol/L (21-32); Chloride 101 mmol/L (98-108); Estimated Glomerular Filt Rate > 60; Glucose 101 mg/dL (70-99); Osmolality Calculated 276 mOsm/kg (285-295); Potassium 4.1 mmol/L (3.5-5.1); Sodium 134 mmol/L (136-145); Total Protein 7.8 g/dL (6.4-8.2)
[2021-10-13 10:43] LABS: Thyroid Stimulating Hormone Reflex 1.99 u/IU/mL (0.36-3.74)
== END 2021-10-13 09:44 | disposition home or self-care (01) ==
LOC: CHSLAB 09:45
PROVIDERS: PCP Family Medicine; Visit Provider Family Medicine
DX: R29.6 Repeated falls (principal); E11.9 Type 2 diabetes mellitus without complications
CPT/HCPCS: 36415; 80053; 84443; 85027

== ENCOUNTER 2021-12-21 15:18 | Outpatient (CLI) | payer MEDICARE, SELFPAY ==
--- NOTE | ~2021-12-21 | US_ITS ---
US venous doppler LE RT DATE: 12/21/2021 16:03 INDICATION: Right lower extremity swelling TECHNIQUE: Real-time and color flow imaging and Doppler analysis of the veins of the right lower extr emity COMPARISON: None FINDINGS: The right greater saphenous vein is patent. There is spontaneous and phasic flow and normal augmentation and color flow signal and normal compression of the deep veins of the right leg. IMPRESSION: No evidence of deep venous thrombosis of right lower extremity Reviewed, dictated and finalized at Location A. Reviewed, dictated and finalized at location A.
== END 2021-12-21 15:19 | disposition home or self-care (01) ==
LOC: CHSIMG 15:21
PROVIDERS: PCP Family Medicine; Visit Provider Family Medicine
DX: M79.89 Other specified soft tissue disorders (principal)
CPT/HCPCS: 93971

== ENCOUNTER 2021-12-22 12:19 | Outpatient (CLI) | payer MEDICARE, SELFPAY ==
--- NOTE | ~2021-12-22 | US_ITS ---
EXAMINATION: US arterial duplex LE DATE: 12/22/2021 13:34 INDICATION: Peripheral vascular disease in the arteries of the bilateral lower limbs on prior CT with risk factors of hypertension and hyperlipidemia. Heart disease and prior vascular surgery. TECHNIQUE: Segmental pressures and plethysmographic and Doppler waveforms of the brachial and lower e xtremity arteries were obtained. COMPARISON: None. FINDINGS: Right and left brachial artery pressures of 124 mm Hg and 122 mm Hg, respectively, are concordant (no rmal difference <= 30 mmHg). The right ankle-brachial index (BEAU) is unable to be obtained due to inability to occlude either the right posterior tibial or dorsalis pedis arteries at the ankle (normal >= 0.9-1). The right great toe -brachial index (TBI) is 0.71 (normal >= 0.6-0.8). Arterial waveforms are triphasic at the right comm on femoral, superficial femoral and popliteal arteries and biphasic at the right posterior tibial and dorsalis pedis arteries with brisk systolic upstrokes throughout. The left BEAU is unable to be obtained due to inability to occlude the vessels at the left ankle. The left TBI is 0.70. Arterial waveforms are triphasic with brisk systolic upstrokes throughout the arter ies of the left lower limb. IMPRESSION: 1. Normal TBI's bilaterally. No significant arterial occlusive disease. Reviewed, dictated and finalized at location B.
== END 2021-12-22 12:20 | disposition home or self-care (01) ==
PROVIDERS: PCP Family Medicine; Visit Provider Nurse Practitioner Family
DX: M79.89 Other specified soft tissue disorders (principal)
CPT/HCPCS: 93925

== ENCOUNTER 2022-10-21 12:18 | Outpatient (CLI) | payer MEDICARE, SELFPAY ==
--- NOTE | ~2022-10-21 | US_ITS ---
EXAMINATION: US carotid duplex BI DATE: 10/21/2022 12:51 INDICATION: Follow-up carotid stenosis TECHNIQUE: Grayscale, color Doppler, and pulsed Doppler images of the cervical carotid arteries were obtained. The degree of vessel stenosis is placed in one of the following categories: normal, <50%, 5 0-69%, >=70% but less than near-occlusion, near-occlusion, or total occlusion. Note that percent sten osis relative to normal distal artery lumen diameter is indirectly measured from velocity measurement s as described by Reynaldo, et al. Radiology 2003; 229:340-346. Notes: Normal: Peak systolic velocity <125 centimeters/sec and no plaque <50%. Peak systolic velocity <125 ( EDV <40; ICA/CCA PSV ratio <2.0; used these factors only a tandem lesions or low cardiac output or co ntralateral disease) 50-69 %: PSV 125-230 (EDV 40-100; ratio 2-4) >= 70% but less than near occlusion: PSV greater than 230 (EDV > 100; ratio> 4.0) Near Occlusion: PSV that is variable; markedly narrowed lumen Occlusion: Absent flow on color/spectral Doppler and no lumen on yepez scale. COMPARISON: None. FINDINGS: RIGHT: The right common carotid artery (CCA) peak systolic velocity (PSV) is 66 cm/s. The right internal car otid artery (ICA) PSV is 146 cm/s. The right ICA end-diastolic velocity (EDV) is 30 cm/s. The right I CA/CCA PSV ratio is 2.2. The external carotid artery (ECA) PSV is 119 cm/s. There is antegrade flow i n the right vertebral artery. LEFT: The left CCA PSV is 116 cm/s. The left ICA PSV is 87 cm/s. The left ICA EDV is 14 cm/s. The left ICA/ CCA PSV ratio is 0.75. The ECA PSV is 81 cm/s. There is antegrade flow in the left vertebral artery. IMPRESSION: 1. 50-69% stenosis in the right internal carotid artery by sonographic criteria. 2. Less than 50% stenosis in the left internal carotid artery by sonographic criteria. Reviewed, dictated and finalized at location L. IMPRESSION: 1. 50-69% stenosis in the right internal carotid artery by sonographic criteria . 2. Less than 50% stenosis in the left internal carotid artery by sonographic cr iteria.
== END 2022-10-21 12:19 | disposition home or self-care (01) ==
LOC: CHSIMG 12:19
PROVIDERS: PCP Family Medicine; Visit Provider Specialist
DX: R94.39 Abnormal result of other cardiovascular function study (principal); R06.02 Shortness of breath; I65.23 Occlusion and stenosis of bilateral carotid arteries; Z95.1 Presence of aortocoronary bypass graft
CPT/HCPCS: 93880

== ENCOUNTER 2022-11-01 08:21 | Outpatient (CLI) | payer MEDICARE, SELFPAY ==
--- NOTE | 2022-11-01 09:00 | EST_ITS ---
Patient Info Name: Dakota Hogan Age: 71 years : 1950 Gender: Male Ht: 69 in Wt: 178 lbs BSA: 2.00 m2 HR: 71 bpm BP: 165 / 78 mmHg Technical Quality: Good Exam Date: 11/01/2022 10:22 AM Exam Location: [facility] Patient Status: Outpatient Admit Date: 11/01/2022 Staff Ordering Physician: Deuce Albert MD Attending Provider: Deuce Albert MD Exam Type: CA stress rodney w NM Study Info A regadenoson stress test was performed. History/Risk Factors Hypertension: Yes Dyslipidemia: Yes Coronary Artery Disease (CAD) Yes Summary 1. 1. Negative lexiscan stress test for ischemic ST changes by ECG criteria. 2. 2. Baseline hypertension. 3. 3. Nuclear scan to follow and will be reported separately. Please correlate with it. Protocol: LEXISCAN Stress ECG Details Stage: REST Duration (min): 2 min : 43 sec HR (bpm): 72 SBP (mmHg): 165 DBP (mmHg): 78 Stage: REST Duration (min): 32 min : 55 sec HR (bpm): 68 SBP (mmHg): 165 DBP (mmHg): 78 Stage: STAGE 1 Duration (min): 0 min : 13 sec HR (bpm): 66 SBP (mmHg): 165 DBP (mmHg): 78 Stage: RECOVERY Duration (min): 0 min : 46 sec HR (bpm): 86 SBP (mmHg): 165 DBP (mmHg): 78 Stage: RECOVERY Duration (min): 1 min : 46 sec HR (bpm): 78 SBP (mmHg): 165 DBP (mmHg): 78 Stage: RECOVERY Duration (min): 2 min : 46 sec HR (bpm): 80 SBP (mmHg): 167 DBP (mmHg): 73 Stage: RECOVERY Duration (min): 3 min : 46 sec HR (bpm): 78 SBP (mmHg): 167 DBP (mmHg): 73 Stage: RECOVERY Duration (min): 4 min : 46 sec HR (bpm): 77 SBP (mmHg): 164 DBP (mmHg): 73 Stage: RECOVERY Duration (min): 5 min : 46 sec HR (bpm): 76 SBP (mmHg): 163 DBP (mmHg): 72 Stage: RECOVERY Duration (min): 6 min : 10 sec HR (bpm): 76 SBP (mmHg): 163 DBP (mmHg): 72 Rest HR: 68 bpm Peak HR: 88 bpm Rest Sys BP: 165 mmHg Peak Sys BP: 167 mmHg Max Pred HR: 148 bpm % Max Pred HR: 59 % Target HR: 126 bpm Max RPP: 14,696 bpm*mmHg Termination Reason: Completed protocol Cardiac Symptoms: None Total Time: 0 min : 13 sec Rest Lynn BP: 78 mmHg Peak Lynn BP: 74 mmHg Total Dose: 0.4 mg Resting ECG Sinus Rhythm with 1st degree AV block, borderline T wave in high lateral leads. Stress ECG No abnormal ST/T wave changes. Arrhythmias Occasional PACs. Report Signatures
--- NOTE | 2022-11-01 15:54 | WPDCARIOSTRE ---
Nuclear Stress Test INDICATIONS Indications: Dyspnea PROCEDURE Procedure Performed: Myocardial Perf Spect-Multi Procedure: Patient underwent lexiscan stress test and immediately was injected with 32.0 mCi of cardiolyte. Multiple tomographic images were obtained. These are of good quality. There is evidence of large size, severe anteroapical and anteroseptal perfusion defects during stress imaging. A separate resting images were obtained after patient was injected with 10.2 mCi of cardiolyte. Multiple tomographic images were obtained. These are of good quality. There is evidence of large size, severe anteroapical and anteroseptal perfusion defects during rest imaging. CONCLUSION Conclusion: 1. Myocardial perfusion imaging demonstrating fixed large size anteroapical and anteroseptal perfusion defects which is suggestive of breast attenuation artifact. 2. No evidence of reversible ischemia. 3. Left ventriculogram demonstrates normal measured ejection fraction of 68% with no wall motion abnormalities. 4. TID score 1.11 is not elevated.
== END 2022-11-01 08:22 | disposition home or self-care (01) ==
LOC: CHSCARD 08:22
PROVIDERS: PCP Family Medicine; Visit Provider Specialist
DX: R94.39 Abnormal result of other cardiovascular function study (principal); R06.02 Shortness of breath; I65.23 Occlusion and stenosis of bilateral carotid arteries; Z95.1 Presence of aortocoronary bypass graft
CPT/HCPCS: 78452; 93017; A9502; J2785

== ENCOUNTER 2023-07-14 10:41 | Outpatient (CLI) | payer MEDICARE, SELFPAY ==
--- NOTE | ~2023-07-14 | XR_ITS ---
XR ankle RT min 3V DATE: 07/14/2023 11:17 INDICATION: Right ankle pain TECHNIQUE: 4 views COMPARISON: None FINDINGS: Prominent anterior and posterior tibial and dorsalis pedis artery calcifications, suggestin g diabetes. There is focal soft tissue swelling along the very distal anterior right lower leg/ankle. No fracture or dislocation of the ankle or disruption of the ankle mortise. Mild plantar and moderate posterior calcaneal enthesopathy. IMPRESSION: Polyarticular calcific location suggesting diabetes Plantar and posterior calcaneal enthesopathy Reviewed, dictated and finalized at location L. L DATABASE ADMINISTRATOR
== END 2023-07-14 10:42 | disposition home or self-care (01) ==
LOC: CHSIMG 10:42
PROVIDERS: PCP Family Medicine; Visit Provider Family Medicine
DX: M25.571 Pain in right ankle and joints of right foot (principal); M77.31 Calcaneal spur, right foot
CPT/HCPCS: 73610

== ENCOUNTER 2024-09-20 11:17 | Outpatient (CLI) | payer MEDICARE, SELFPAY ==
--- NOTE | ~2024-09-20 | XR_ITS ---
Right ankle Technique: AP, oblique, and lateral views were obtained. Clinical History: Pain and swelling Findings: No acute fracture or dislocation is seen. Osseous alignment is anatomic. Ankle mortise and other visualized joint spaces are preserved. Soft tissues are otherwise unremarkable, aside from vas cular calcifications. Impression: Unremarkable right ankle. Reviewed, dictated and finalized at location . Impression: Unremarkable right ankle.
--- NOTE | ~2024-09-20 | US_ITS ---
US venous doppler LE RT - 09/20/2024 12:00 CDT History: 73 years old Male with right lower extremity pain and swelling. Real-time sonographic images of the right lower extremity venous system were obtained. Color Doppler sonography and spectral waveform analysis were performed. No prior studies for comparison. The right sapheno-femoral junctions are patent. The right common femoral, superficial femoral, popl iteal and posterior tibial veins are compressible and without evidence of echogenic thrombus. Reflux is noted in the femoral and posterior tibial vein suggestive of Venous Insufficiency. Impression: 1. No evidence of deep venous thrombosis 2. Findings concerning for Venous Insufficiency Reviewed, dictated and finalized at location A. Impression: 1. No evidence of deep venous thrombosis 2. Findings concerning for Venous Insufficiency
[2024-09-20 11:33] LABS: Basophils Absolute Auto 0.04 K/mm3 (0.00-0.10); Basophils Percent Auto 0.5 % (0.0-1.0); Eosinophils Absolute Auto 0.12 K/mm3 (0.02-0.50); Eosinophils Percent Auto 1.4 % (1.0-6.0); Hematocrit 43.5 % (37.0-46.0); Hemoglobin 14.2 g/dL (12.4-15.3); Immature Granulocyte Absolute 0.03 K/mm3 (0.00-0.00); Immature Granulocyte Percent A 0.4 % (0.0-0.0); Lymphocytes Absolute Auto 1.63 K/mm3 (1.10-4.50); Lymphocytes Percent Auto 19.3 % (18.0-42.0); Mean Corpuscular HGB Conc 32.6 g/dL (32-36); Mean Corpuscular Hemoglobin 34.1 pg (27.0-31.0); Mean Corpuscular Volume 104.3 fL (78.0-102.0); Mean Platelet Volume 9.7 fl (8.7-11.0); Monocytes Absolute Auto 0.56 K/mm3 (0.10-0.90); Monocytes Percent Auto 6.6 % (2.0-11.0); Neutrophils Absolute Auto 6.08 K/mm3 (1.70-7.20); Neutrophils Percent Auto 71.8 % (50.0-70.0); Platelet Count Result 190 K/mm3 (150-420); Red Blood Count 4.17 M/mm3 (4.70-6.10); Red Cell Distribution Width 12.1 % (11.6-14.4); White Blood Count 8.5 K/mm3 (4.8-10.8)
--- OUTSIDE RECORDS SUMMARY | 2024-09-20 12:08 | XMS_ITS | Clinical Summary ---
Author Organization [facility] Address [address] [place] [address] Care Team Providers Care Supervisor Conditioning Yard Name Role Phone Trace Hollins DO Primary Care Provider [phone] Mary Dover MD Unavailable Allergies No known active allergies Medications aspirin EC (ASPIRIN EC) 81 MG tablet Take 1 tablet (81 mg total) by mouth daily. 90 tablet 3 04/24/2021 Active metoprolol tartrate (LOPRESSOR) 25 MG tablet Take 1 tablet (25 mg total) by mouth 2 (two) times daily. 180 tablet 1 02/20/2024 Active amLODIPine (NORVASC) 2.5 MG tablet Take 1 tablet (2.5 mg total) by mouth daily. 90 tablet 1 02/20/2024 Active potassium chloride CR (KLOR-CON M) 20 MEQ tablet Take 1 tablet (20 mEq total) by mouth daily. 90 tablet 04/25/2024 Active furosemide (LASIX) 40 MG tablet TAKE ONE TABLET BY MOUTH DAILY 90 tablet 3 04/30/2024 Active atorvastatin (LIPITOR) 40 MG tablet TAKE ONE TABLET BY MOUTH BEDTIME 90 tablet 3 07/06/2024 Active Active Problems Problem Noted Date Diagnosed Date History of ETOH abuse 12/04/2022 Fall 09/22/2021 Hematoma of neck 09/22/2021 Hemothorax on left 09/22/2021 Multiple bruises 09/22/2021 Carotid stenosis 02/08/2020 Deep vein thrombosis (DVT) o f popliteal vein of right lower extremity ([facility]/HCC [facility]/HCC) 06/18/2016 S/P CABG (coronary artery bypass graft) 06/18/19 17 Asthma ([facility]/HCC) HTN (hypertension) Arthritis Hyperlipidemia CAD (coronary artery disease) Family History Medical History Relation Comments Heart Attack Father Heart Attack Mother Relation Status Comments Father Mother Sister Social History Tobacco Use Types Packs/Day Years Used Date Smoking Tobacco: Never Smokeless Tobacco: Never Tobacco Cessation:Counseling Given: Not Answered Alcohol Use Standard Drinks/Week Comments Yes 0 (1 standard drink = 0.6 oz pur e alcohol) 30 drinks per week AUDIT-C Answer Date Recorded Frequency of Alcohol Consumption 4 or more times a week 03/03/2018 Average Number of Drinks 3 or 4 018 Frequency of Binge Drinking Not on file 02/12 Sex and Gender Information Value Date Recorded Sex Assigned at Not on file Legal Sex Male 1:42 AM CDT Gender Identity Not on file Sexual Orientation Not on file Occupation Industry Job Start Date Job End Date retired Not on file Not on file Not on file Last Filed Vital Signs Vital Sign Reading Time Taken Comments Blood Pressure 116/52 02/20/2024 4:20 PM CDT Pulse 53 02/20/2024 4:20 PM CDT Temperature 37.1 C (98.7 F) 09/22/2021 3:14 AM CDT Respiratory Rate 14 02/20/2024 4:20 PM CDT Oxygen Saturation 98% 02/20/2024 4:20 PM CDT Inhaled Oxygen Concentration - - Weight 78.9 kg (174 lb) 02/20/2024 4:20 PM CDT Height 175.3 cm (5' 9 ) 02/20/2024 4:20 PM CDT Body Mass Index 25.7 02/20/2024 4:20 PM CDT Plan of Treatment Upcoming Encounters Date Type Department Care Team (Late st Contact Info) Description 02/27/2025 9:45 AM CDT Office Visit [facility] [place] [address] Mary Dover MD [address] [place] [address] Health Maintenance Due Date Last Done Comments Colorectal Cancer Screening Colonoscopy (10 Years) 1950 Hepatitis C 12/04/1967 DTaP, Tdap and Td Vaccines ( 1 - Tdap) 1968 Zoster Vaccines (1 of 2) 12/04/1999 RSV Immunization or 60+ Years (1 - Risk 60-74 years 1-dose series) 2009 Annual Medicare Wellness Visit 2014 Pneumococcal Vaccine: 65+ Years (2 of 2 - PPSV23 or PCV20) 05/13/2021 03/18/2021 ASCVD LDL 03/18/2022 03/18/2021, 05/15/2018, 11/17/2013 COVID-19 Vaccine (3 - 2023-2 5 season) 2024 12/09/2020, 11/18/2020 Meningococcal B Vaccine Aged Out No l onger eligible based on patient's age to complete this topic Meningococcal Vaccine Aged Out No parul yousif eligible based on patient's age to complete this topic RSV Immunizations Under 20 Months Aged Out No longer eligible b ased on patient's age to complete this topic Procedures Procedure Name Priority Date/Time Associated Diagnosis Comments LIPID PANEL Routine 03/18/2021 from Last 3 Months or Most Recently Relevant to Health Maintenance Results * LIPID PANEL (03/18/2021) CHOLESTEROL 136 HDL 61 TRIGLYCERIDES 97 LDL (CALCULATED) 56 03/18/2021 us Doc [facility] LAB[facility]ATORY Final Result from Last 3 Months or Most Recently Relevant to Health Maintenance Insurance [facility] Advance Directives Documents on File Type Date Recorded Patient Press Service Reader Expl anation Advance Directives and Livin g Will 11/16/2013 11/18/2013 [facility] Care Teams Supervisor Conditioning Yard Relationship Specialty Start Date End Date Trace Hollins DO [address] [place] [address] PCP - General FAMILY PRACTICE 03/31/21 Mary Dover MD [address] [place] [address] Consulting Physician CARDIOVASCULAR DISEASE 02/18/24
--- OUTSIDE RECORDS SUMMARY | 2024-09-20 12:08 | XMS_ITS | Encounter Summary ---
Author Organization [facility] Address [facility] [place] [address] Care Team Providers Care Alum Plant Operator Name Role Phone iCro Hidalgo MD Primary Care Provider Deuce Barba MD Unavailable [phone] Stephan Matias MD Primary Care Provider Ebony Loomis APRN FIBERGLASS BOAT ASSEMBLY SUPERVISOR-C Unavailable Trcae Hollins DO Primary Care Provider Mary Dover MD Unavailable Encounter Details Date Type Department Care Team (Late Contact Info) Description 06/09/2016 Abstract [facility] [address] [place] [address] Deuce Albert MD [address] [place] [address] Social History Tobacco Use Types Packs/Day Years Used Date Smoking Tobacco: Never Alcohol Use Standard Drinks/Week Comments Yes 13.3 (1 standard drink = 0.6 oz pure alcohol) Sex and Gender Information Value Date Recorded Sex Assigned at Not on file Legal Sex Male 1:42 AM CDT Gender Identity Not on file Sexual Orientation Not on file Occupation Industry Job Start Date Job End Date retired Not on file Not on file Not on file documented as of this encounter Plan of Treatment Upcoming Encounters Date Type Department Care Team (Late Contact Info) Description 02/27/2025 9:45 AM CDT Office Visit [facility] [place] [phone] Mary Dover MD [address] [place] [address] documented as of this encounter Visit Diagnoses Not on filedocumented in this encounter Care Teams Alum Plant Operator Relationship Specialty Start Date End Date Ciro Hidalgo MD PCP - General SURGERY 06/16/16 05/01/19 Stephan Matias MD [address] [place] [phone] PCP - General INTERNAL MEDICINE 02/08/20 03/30/21 Trace Hollins DO [address] [place], [place] [id number] PCP - General FAMILY PRACTICE 03/31/21 Deuce Albert MD [address] [place] [phone] [facility] Security Officer CARDIOVASCULAR DISEASE 06/16/16 01/17/24 Ebony Loomis APRN, FIBERGLASS BOAT ASSEMBLY SUPERVISOR-C [address] [place] [address] [id number] [place] [address] NURSE PRACTITIONER 03/31/21 02/17/24 Mary Dover MD [address] [place] [address] Consulting Physician CARDIOVASCULAR DISEASE 02/18/24 documented as of this encounter
--- OUTSIDE RECORDS SUMMARY | 2024-09-20 12:08 | XMS_ITS | Encounter Summary ---
Author Organization [facility] Address [facility] [place] [address] Care Team Providers Care Advisor Consultant Name Role Phone Ciro Hidalgo MD Primary Care Provider Deuce Barba MD Unavailable [phone] Stephan Matias MD Primary Care Provider [phone] Ebony Loomis APRN SIZING SPRAYER-C Unavailable Trace Hollins DO Primary Care Provider [phone] Mary Dovre MD Unavailable Encounter Details Date Type Department Care Team (Late st Contact Info) Description 05/15/2018 Abstract [facility] [address] [place] [address] Deuce Albert MD [address] [place] [address] Social History Tobacco Use Types Packs/Day Years Used Date Smoking Tobacco: Never Smokeless Tobacco: Never Alcohol Use Standard Drinks/Week Comments Yes 13.3 (1 standard drink = 0.6 oz pure alcohol) AUDIT-C Answer Date Recorded Frequency of Alcohol [...] Description 02/27/2025 9:45 AM CDT Office Visit [facility] [place] [phone] Mary Dover MD [address] [place] [address] documented as of this encounter Procedures Procedure Name Priority Date/Time Associated Diagnosis Comments ALT (OUTSIDE LAB) Routine 05/15/2018 LIPID PANEL Routine 05/15/2018 documented in this encounter Results * ALT (OUTSIDE LAB) (05/15/2018) ALT 22 05/15/2018 us Doc [facility] LAB-OUTSIDE/ABSTRACTED Final Result * LIPID PANEL (05/15/2018) CHOLESTEROL 158 HDL 52 TRIGLYCERIDES 189 CHOL/HDL RATIO 3.0 LDL (CALCULATED) 68 05/15/2018 us Doc [facility] Final Result documented in this encounter Visit Diagnoses Not on filedocumented in this encounter Care Teams Advisor Consultant Relationship Specialty Start Date End Date Ciro Hidalgo MD PCP - General SURGERY 06/16/16 05/01/19 Stephan Matias MD [address] [place] [phone] PCP - General INTERNAL MEDICINE 02/08/20 03/30/21 Trace Hollins DO [address] [place] [address] PCP - General FAMILY PRACTICE 03/31/21 Deuce Albert MD [address] [place] [phone] [employer] Tinter CARDIOVASCULAR DISEASE 06/16/16 01/17/24 Ebony Loomis, CHOCOLATE MOLDER, SIZING SPRAYER-C [address] [place] [address] [id number] [place] [address] NURSE PRACTITIONER 03/31/21 02/17/24 Mary Dover MD [address] [place] [address] Consulting Physician CARDIOVASCULAR DISEASE 02/18/24 documented as of this encounter
[2024-09-20 12:22] LABS: Alanine Aminotransferase 17 U/L (16-63); Albumin Level 3.8 g/dL (3.4-5.0); Alkaline Phosphatase 70 U/L (46-116); Anion Gap 7 mmol/L (4-12); Aspartate Amino Transferase 21 U/L (15-37); Bilirubin,Total 1.6 mg/dL (0.00-1.00); Blood Urea Nitrogen 19 mg/dL (7-18); Calcium 9.2 mg/dL (8.5-10.1); Carbon Dioxide 31 mmol/L (21-32); Chloride 103 mmol/L (98-108); Estimated Glomerular Filt Rate 51; Glucose 96 mg/dL (70-99); Osmolality Calculated 294 mOsm/kg (285-295); Potassium 4.5 mmol/L (3.5-5.1); Sodium 141 mmol/L (136-145); Total Protein 8.1 g/dL (6.4-8.2)
[2024-09-20 12:24] LABS: CRP < 0.5 mg/dL (0.0-0.9)
== END 2024-09-20 11:18 | disposition home or self-care (01) ==
PROVIDERS: PCP Family Medicine; Visit Provider Family Medicine
DX: M25.471 Effusion, right ankle (principal); I10 Essential (primary) hypertension; I82.401 Acute embolism and thrombosis of unspecified deep veins of right lower extremity
CPT/HCPCS: 36415; 73610; 80053; 85025; 86140; 93971